=== PATIENT | female | born 1980 | race Caucasian/White ===

== ENCOUNTER 2021-04-12 10:43 | Emergency (ER) | payer OTHER ==
[2021-04-12 10:55] VITALS: BP 107/63; PULSE 84; TEMP 97.8; BMI 29.0
== END 2021-04-12 13:35 | disposition home or self-care (01) ==
LOC: JERFT 10:43
DX: O26.891 Other specified pregnancy related conditions, first trimester (principal); M54.50 Low back pain, unspecified; V89.2XXA Person injured in unspecified motor-vehicle accident, traffic, initial encounter
CPT/HCPCS: 76817-TC; 84703; 99284-25

== ENCOUNTER 2021-10-24 07:00 | Inpatient (IN) | payer OTHER ==
[2021-10-24] MEDS ORDERED: ELECTROLYTE-148 SOLN 1,000 ML IV SCH (08:30)
[2021-10-24 09:10] VITALS: BMI 35.9
[2021-10-24] MEDS ORDERED: CITRIC ACID/SODIUM CITRATE 30 ML UNIT-DOSE CUP PO ONE (09:45)
[2021-10-24] MEDS ORDERED: IBUPROFEN 600 MG TABLET (FP) PO PRN ×2 (12:42→19:23)
[2021-10-24] MEDS ORDERED: ACETAMINOPHEN 325 MG TABLET (FP) PO PRN ×2 (12:42→19:23)
[2021-10-24] MEDS ORDERED: morphine SULFATE/PF 1 MG/2 ML (2cc Syringe - QUVA) EP ONE (12:42)
[2021-10-24] MEDS ORDERED: ONDANSETRON 4 MG/2 ML VIAL IVPUSH PRN (12:42)
[2021-10-24] MEDS ORDERED: ceFAZolin SODIUM 1 GM VIAL ONE (13:35)
[2021-10-24] MEDS ORDERED: SODIUM CHLORIDE 0.9% P/F 10 ML VIAL IJ ONE (13:52)
[2021-10-24] MEDS ORDERED: OXYTOCIN 10 UNITS/ML VIAL ONE ×2 (13:52→14:15)
[2021-10-24] MEDS ORDERED: OXYTOCIN 20 UNITS in 0.9% NS 20 UNIT/1,000 ML INFUS.BAG IV ONE (15:17)
[2021-10-24 15:51] LABS: CORD BASE EXCESS -1.6 mmol/L (0-2); CORD HCO3 24.7 mmHg (20-29); CORD PCO2 47.3 mmHg (30-78); CORD pH 7.335 (7.14-7.44)
[2021-10-24 15:53] LABS: CORD HCO3 26.3 mmHg (20-29); CORD PCO2 59.1 mmHg (30-78); CORD pH 7.266 (7.14-7.44)
[2021-10-24] MEDS ORDERED: METHYLERGONOVINE MALEATE 0.2 MG/1 ML AMP IM PRN (19:23)
[2021-10-24] MEDS ORDERED: CEFAZOLIN SODIUM 2 GM VIAL IVPB SCH (19:30)
[2021-10-24] MEDS ORDERED: OXYTOCIN 20 UNITS in 0.9% NS 20 UNIT/1,000 ML INFUS.BAG IV SCH (19:30)
[2021-10-24] MEDS: CEFAZOLIN SODIUM 2 GM in DEXTROSE 5%-WATER 100 ML IVPB SCH (20:30)
[2021-10-25] MEDS: CEFAZOLIN SODIUM 2 GM in DEXTROSE 5%-WATER 100 ML IVPB SCH ×2 (06:06→13:35)
[2021-10-25] MEDS: oxyCODONE HCL 5 MG TABLET PO PRN ×3 (06:34→17:36)
[2021-10-25 08:15] LABS: BASO % 0.4 % (0-2.0); EOS % 0.5 % (0-4.5); HEMATOCRIT 37.2 % (32.4-45.2); HEMOGLOBIN 12.3 GM/dL (10.7-15.3); LYMPH % 11.5 % (8-40); MCH 26.7 pg (25.7-33.7); MEAN CELL VOLUME 80.9 fl (80-96); MONO % 5.8 % (3.8-10.2); NEUT % 81.8 % (42.8-82.8); PLATELET COUNT 277 10^3/uL (134-434); RBC 4.59 M/mm3 (3.60-5.2); RDW 14.9 % (11.6-15.6); WHITE BLOOD COUNT 14.1 K/mm3 (4.0-10.0)
[2021-10-25] MEDS: ENOXAPARIN NA (PORCINE) 40 MG/0.4 ML DISP.SYRIN SQ SCH (10:13)
[2021-10-25] MEDS: SIMETHICONE 80 MG TAB.CHEW (FP) PO PRN ×2 (12:26→17:36)
[2021-10-25] MEDS ORDERED: BISACODYL 10 MG SUPP.RECT RC PRN (19:24)
[2021-10-25 22:13] VITALS: RESP 18
[2021-10-26] MEDS: oxyCODONE HCL 5 MG TABLET PO PRN ×3 (08:07→19:29)
[2021-10-26] MEDS: SIMETHICONE 80 MG TAB.CHEW (FP) PO PRN ×3 (08:08→19:29)
[2021-10-26] MEDS: ENOXAPARIN NA (PORCINE) 40 MG/0.4 ML DISP.SYRIN SQ SCH (09:39)
[2021-10-27] MEDS: ENOXAPARIN NA (PORCINE) 40 MG/0.4 ML DISP.SYRIN SQ SCH (09:43)
[2021-10-27 10:28] VITALS: BP 92/61; PULSE 99; TEMP 98.1
== END 2021-10-27 12:33 | disposition home or self-care (01) | DRG 540 ==
LOC: JLDR 07:00 → J3W 16:42
PROVIDERS: ADMIT Obstetrics & Gynecology; ATTEND Obstetrics & Gynecology
PROC: 10D00Z1 Extraction of Products of Conception, Low, Open Approach (ICD-10-PCS; principal; 2021-10-24)
PROC: 0UT70ZZ Resection of Bilateral Fallopian Tubes, Open Approach (ICD-10-PCS; 2021-10-24)
DX: O34.211 Maternal care for low transverse scar from previous cesarean delivery (principal); O99.284 Endocrine, nutritional and metabolic diseases complicating childbirth; E03.9 Hypothyroidism, unspecified; E28.2 Polycystic ovarian syndrome; Z30.2 Encounter for sterilization; Z3A.39 39 weeks gestation of pregnancy; Z37.0 Single live birth
CPT/HCPCS: 36415; 36600; 80053; 82803; 85025; 85610; 85730; 86780; 86850; 86900; 86901; 88305-TC; 88307-TC; C9803-CS; U0003; U0005